=== PATIENT | female | born 1945 | race Caucasian/White ===

== ENCOUNTER 2018-07-15 22:08 | Emergency (ER) | payer MEDICARE, OTHER ==
[~2018-07-15] VITALS: Ht 142.2 cm; Wt 52.3 kg
[~2018-07-15 22:08] MED LIST: AMLO10TA55 PO; BESI5OS OP; DICLOFENAC OD; EZET10 PO; PRED5DRO17 OP; SIMV20TA6 PO
[2018-07-15 22:33] VITALS: BP 120/70
[2018-07-15] MEDS ORDERED: PERTUSS(ACELL),DIPH,TET VAC/PF 0.5 ML VIAL IM ONE (23:00)
== END 2018-07-15 23:30 | disposition home or self-care (01) ==
LOC: EMS 22:10
DX: S01.01XA Laceration without foreign body of scalp, initial encounter (principal); E11.9 Type 2 diabetes mellitus without complications; E78.00 Pure hypercholesterolemia, unspecified; I10 Essential (primary) hypertension; W45.8XXA Other foreign body or object entering through skin, initial encounter; Y93.89 Activity, other specified; Y92.89 Other specified places as the place of occurrence of the external cause; Y99.8 Other external cause status
CPT/HCPCS: 12001; 90471; 90715